=== PATIENT | female | born 2000 | race Caucasian/White ===

== ENCOUNTER → 2019-03-02 17:34 | Outpatient (CLI) | payer MEDICAID, SELFPAY ==
[2019-03-02 18:43] LABS: Basophils % 0.4 % (0.1-2.0); Eosinophils # 0.3 K/mm3 (0.0-0.4); Eosinophils % 3.5 % (0.1-12.0); Hematocrit 46.3 % (37.0-47.0); Hemoglobin 14.7 g/dL (12.2-16.2); Lymphocytes % 23.1 % (10-50); Mean Corpuscular HGB Conc 31.8 g/dL (31.8-35.4); Mean Corpuscular Hemoglobin 27.8 pg (27.0-31.2); Mean Corpuscular Volume 87.5 fl (81-99); Mean Platelet Volume 8.4 fl (7.4-10.4); Monocytes # 0.5 K/mm3 (0.1-1.0); Monocytes % 5.7 % (1.7-9.3); Neutrophils # 5.7 K/mm3 (1.8-7.8); Neutrophils % 67.3 % (37.0-80.0); Platelet Count 384 K/mm3 (142-424); Red Blood Count 5.29 M/mm3 (4.20-5.40); Red Cell Distribution Width 13.2 % (11.5-17.5); White Blood Count 8.5 K/mm3 (4.5-13.0)
[2019-03-02 19:05] LABS: Alanine Aminotransferase 32 U/L (12-78); Albumin Level 4.3 gm/dL (3.4-5.0); Albumin/Globulin Ratio 1.2 (1.1-1.8); Alkaline Phosphatase 79 U/L (46-116); Anion Gap 14.7 mEq/L (5-15); Aspartate Amino Transferase 25 U/L (15-37); Bilirubin,Total 0.5 mg/dL (0.2-1.0); Blood Urea Nitrogen 9 mg/dL (7-18); Calcium 9.5 mg/dL (8.5-10.1); Carbon Dioxide 26 mmol/L (21.0-32.0); Chloride 103 mmol/L (98-107); Chol/HDL Ratio 3.7 (1-3.5); Cholesterol 183 mg/dL (140-200); Creatinine,Serum 0.75 mg/dL (0.55-1.02); Estimated Glomerular Filt Rate 99 ml/min (>60); Free T4 (Free Thyroxine) 0.82 ng/dl (0.78-1.34); GFR (African American) 119 ML/MIN (>60); Globulin 3.7 gm/dl (1.3-3.2); Glucose 79 mg/dL (74-106); HDL Cholesterol 49 mg/dL (29-89); LDL Cholesterol 113 mg/dL (0-130); Potassium 4.7 mmoL/L (3.5-5.1); Sodium 139 mmol/L (136-145); Triglycerides 104 mg/dL (30-200); VLDL Cholesterol 21 mg/dL (0-40)
== END ==
PROVIDERS: Visit Provider Emergency Medicine
DX: R53.83 Other fatigue (principal); E55.9 Vitamin D deficiency, unspecified; E66.01 Morbid (severe) obesity due to excess calories; F90.9 Attention-deficit hyperactivity disorder, unspecified type; Z68.42 Body mass index [BMI] 45.0-49.9, adult
CPT/HCPCS: 80053; 80061; 82652; 84439; 84443; 85025

== ENCOUNTER → 2022-03-26 11:15 | Outpatient (CLI) | payer MEDICAID, SELFPAY ==
[2022-03-26 13:45] LABS: Amphetamine/Metha Screen,Urine Positive ng/ml (<1000)
[2022-03-26 13:46] LABS: Barbiturates Screen,Urine Negative ng/ml (<200); Benzodiazepines Screen,Urine Negative ng/ml (<200)
[2022-03-26 13:47] LABS: Cannabinoid Screen,Urine Positive ng/ml (<50); Methadone Screen,Urine Negative ng/ml (<300)
[2022-03-26 13:48] LABS: Cocaine Screen,Urine Negative ng/ml (<300)
[2022-03-26 13:49] LABS: Opiate Screen,Urine Negative ng/ml (<300); Phencyclidine Screen,Urine Negative ng/ml (<25)
== END ==
PROVIDERS: PCP Physician Assistant; Visit Provider Physician Assistant
DX: F90.9 Attention-deficit hyperactivity disorder, unspecified type (principal)
CPT/HCPCS: 80305

== ENCOUNTER → 2022-08-12 13:47 | Outpatient (CLI) | payer MEDICAID, SELFPAY ==
--- NOTE | 2022-08-12 13:47 | US_ITS ---
PROCEDURE INFORMATION: Exam: US Left Breast, Complete, Screening Exam date and time: 08/12/2022 2:02 PM Age: 21 years old Clinical indication: Other: Intermittent redness; Additional info: Breast skin changes TECHNIQUE: Imaging protocol: Complete ultrasound of all four quadrants of the left breast and the retroareolar regions, including ultrasound of the axilla when performed. COMPARISON: No relevant prior studies available. FINDINGS: Breast: High resolution sonography of the LEFT breast is unremarkable. No discrete mass or fluid collection. IMPRESSION: Normal study. ASSESSMENT: BI-RADS 1: Negative: There is nothing to comment on (likelihood of cancer essentially 0%)
--- NOTE | 2022-08-12 13:47 | US_ITS ---
PROCEDURE INFORMATION: Exam: US Right Breast, Complete, Screening Exam date and time: 08/12/2022 1:54 PM Age: 21 years old Clinical indication: Other: Intermittent redness; Additional info: Breast skin changes TECHNIQUE: Imaging protocol: Complete ultrasound of all four quadrants of the right breast and the retroareolar regions, including ultrasound of the axilla when performed. COMPARISON: No relevant prior studies available. FINDINGS: Breast: High resolution sonography of the RIGHT breast is unremarkable. No discrete mass or fluid collection. IMPRESSION: Normal study. ASSESSMENT: BI-RADS 1: Negative: There is nothing to comment on (likelihood of cancer essentially 0%)
== END ==
PROVIDERS: PCP Physician Assistant; Visit Provider Physician Assistant
DX: R23.4 Changes in skin texture (principal)
CPT/HCPCS: 76641

== ENCOUNTER → 2023-01-29 12:00 | Outpatient (CLI) | payer MEDICAID, SELFPAY | PROVIDERS: PCP Physician Assistant; Visit Provider Physician Assistant | DX: M54.50 Low back pain, unspecified (principal) ==

== ENCOUNTER → 2023-01-29 23:26 | Outpatient (CLI) | payer MEDICAID, SELFPAY ==
[2023-01-29 19:04] LABS: HCG Qualitative, Serum Negative (Negative)
== END ==
PROVIDERS: PCP Physician Assistant; Visit Provider Physician Assistant
DX: R10.9 Unspecified abdominal pain (principal); M54.50 Low back pain, unspecified
CPT/HCPCS: 84703; 87086

== ENCOUNTER → 2023-05-07 16:24 | Outpatient (CLI) | payer MEDICAID, SELFPAY ==
[2023-05-07 12:08] LABS: Basophils % 0.7 % (0.1-2.0); Eosinophils # 0.2 K/mm3 (0.0-0.4); Eosinophils % 3.8 % (0.1-12.0); Hematocrit 42.5 % (37.0-47.0); Hemoglobin 14.3 g/dL (12.2-16.2); Lymphocytes # 1.7 K/mm3 (0.7-4.5); Lymphocytes % 33.1 % (10-50); Mean Corpuscular HGB Conc 33.8 g/dL (31.8-35.4); Mean Corpuscular Hemoglobin 29.4 pg (27.0-31.2); Mean Platelet Volume 7.9 fl (7.4-10.4); Monocytes # 0.3 K/mm3 (0.1-1.0); Monocytes % 5.6 % (1.7-9.3); Neutrophils # 2.9 K/mm3 (1.8-7.8); Platelet Count 362 K/mm3 (142-424); Red Blood Count 4.89 M/mm3 (4.20-5.40); Red Cell Distribution Width 13.6 % (11.5-17.5); White Blood Count 5.2 K/mm3 (4.8-10.8)
[2023-05-07 12:23] LABS: Amphetamine/Metha Screen,Urine Negative ng/ml (<1000)
[2023-05-07 12:24] LABS: Barbiturates Screen,Urine Negative ng/ml (<200)
[2023-05-07 12:25] LABS: Benzodiazepines Screen,Urine Negative ng/ml (<200); Cannabinoid Screen,Urine Positive ng/ml (<50)
[2023-05-07 12:26] LABS: Cocaine Screen,Urine Negative ng/ml (<300)
[2023-05-07 12:27] LABS: Methadone Screen,Urine Negative ng/ml (<300); Opiate Screen,Urine Negative ng/ml (<300)
[2023-05-07 12:28] LABS: Phencyclidine Screen,Urine Negative ng/ml (<25)
[2023-05-07 12:42] LABS: Alanine Aminotransferase 21 U/L (12-78); Albumin Level 4.8 g/dl (3.5-5.0); Albumin/Globulin Ratio 1.4 (1.1-1.8); Alkaline Phosphatase 53 U/L (38-126); Aspartate Amino Transferase 32 U/L (14-36); Bilirubin,Total 0.6 mg/dl (0.2-1.3); Blood Urea Nitrogen 9 mg/dl (7-17); Calcium 9.3 mg/dl (8.4-10.2); Carbon Dioxide 25 mmol/L (22.0-30.0); Chloride 102 mmol/L (98-107); Chol/HDL Ratio 2.3 (1-3.5); Cholesterol 254 mg/dl (140-200); Estimated Glomerular Filt Rate 77 ml/min (>60); GFR (African American) 93 ML/MIN (>60); Globulin 3.4 g/dL (1.3-3.2); Glucose 86 mg/dl (74-100); HDL Cholesterol 109 mg/dl (40-60); Sodium 136 mmol/L (136-145); Total Protein,Serum 8.2 g/dl (6.3-8.2); Triglycerides 148 mg/dl (30-150); VLDL Cholesterol 30 mg/dL (0-40)
[2023-05-07 12:47] LABS: Erythrocyte Sedimentation Rate 18 mm/hr (0-20)
[2023-05-07 12:53] LABS: C-Reactive Protein 8.7 mg/L (0-4); Direct LDL Cholesterol 126.37 mg/dL (100-129)
[2023-05-07 13:13] LABS: Thyroid Stimulating Hormone 2.38 uIU/mL (0.465-4.68)
[2023-05-08 13:37] LABS: Anti-Cyclic Citrullinated Pept 0 units (0-19)
[2023-05-08 14:11] LABS: Anti-Centromere B Antibodies <0.2 AI (0.0-0.9); Anti-DNA (DS) Ab Qn <1 IU/mL (0-9); Anti-Jo-1 <0.2 AI (0.0-0.9); Anti-Smith Antibody <0.2 AI (0.0-0.9); Antichromatin Antibodies <0.2 AI (0.0-0.9); Antiscleroderma-70 Antibodies <0.2 AI (0.0-0.9); RNP Antibodies <0.2 AI (0.0-0.9); Sjogren's Anti-SS-A <0.2 AI (0.0-0.9); Sjogren's Anti-SS-B <0.2 AI (0.0-0.9)
== END ==
PROVIDERS: PCP Physician Assistant; Visit Provider Physician Assistant
DX: R60.9 Edema, unspecified (principal); F90.9 Attention-deficit hyperactivity disorder, unspecified type; M25.50 Pain in unspecified joint; E66.9 Obesity, unspecified; Z68.41 Body mass index [BMI] 40.0-44.9, adult; Z79.899 Other long term (current) drug therapy
CPT/HCPCS: 80053; 80061; 80305; 82306; 84443; 85025; 85651; 86140; 86200; 86225; 86235